=== PATIENT | female | born 1955 | race Caucasian/White ===

== ENCOUNTER 2022-06-19 13:10 | Emergency (ER) | payer MEDICARE ==
[2022-06-19 13:46] LABS: #Eosinphils 0.3 10x3/uL (0.0-0.5); #Monocytes 0.6 10x3/uL (0.0-1.1); #Neutrophils 5.6 10x3/uL (1.5-8.4); %Basophils 0.3 % (0.0-2.0); %Eosinophils 4.4 % (0.0-6.0); %Lymphocytes 8.6 % (18.0-47.0); %Monocytes 8.9 % (0.0-10.0); %Neutrophils 77.2 % (40.0-75.0); Hemoglobin 10.8 g/dL (12.0-15.5); Mean Corpuscular HGB CONC 31.1 g/dL (32.0-36.0); Mean Corpuscular Hemoglobin 28.1 pg (27.0-33.0); Mean Corpuscular Volume 90.1 fl (81.6-98.3); Mean Platelet Volume 11.1 fl (7.4-10.4); Platelet Count 205 10x3/uL (150-450); RBC Distribution Width 17.5 % (11.5-14.5); Red Blood Cell (RBC) Count 3.85 10x6/uL (3.90-5.03); White Blood Cell (WBC) Count 7.2 10x3/uL (3.5-10.5)
[2022-06-19 13:57] LABS: ALT (SGPT) 29 U/L (8-55); AST (SGOT) 23 U/L (5-34); Albumin 3.8 g/dL (3.4-4.8); Alkaline Phosphatase 114 U/L (40-110); Anion Gap 16 mmol/L (10-20); BUN (Urea Nitrogen) 35 mg/dL (9.8-20.1); Bilirubin, Total 0.7 mg/dL (0.2-1.2); Calc. Creatinine Clearance 0 mL/min (70-130); Calcium 8.5 mg/dL (7.8-10.44); Carbon Dioxide 27 mmol/L (23-31); Chloride 100 mmol/L (98-107); Estimated GFR 26; Globulin 2.5 g/dL (2.4-3.5); Glucose 84 mg/dL (80-115); Lipase 80 U/L (8-78); Potassium 4.4 mmol/L (3.5-5.1); Protein, Total 6.3 g/dL (5.8-8.1); Sodium 139 mmol/L (136-145)
[2022-06-19 14:16] LABS: CKMB 3.5 ng/mL (0-6.6)
[2022-06-19 14:17] LABS: Actual Bicarbonate (HCO3v) 29 mEq/L (22-28); Base Excess 3.3 mEq/L (-2.0 to +3.0); Calcium, Ionized (venous) 0.97 mmol/L (1.16-1.32); Chloride (VBG) 101 mmol/L (98-106); Hemoglobin (Hb) 10.3 g/dL (11.7-16.1); Potassium (VBG) 4.78 mmol/L (3.70-5.30); Puncture Site Other Site; RapidComm Collect By ER NURSE; Sodium 134.4 mmol/L (133-146); pH (venous) 7.38 (7.32-7.43)
[2022-06-19] MEDS ORDERED: Aspirin Chewable 81 MG TAB ONE (14:19)
[2022-06-19 15:21] LABS: SARS-CoV-2 NAA Rapid Test Not Detected (NotDetected)
== END 2022-06-19 16:43 | disposition short-term general hospital (02) ==
LOC: CSHERS 13:10
DX: I95.9 Hypotension, unspecified (principal); R77.8 Other specified abnormalities of plasma proteins; K21.9 Gastro-esophageal reflux disease without esophagitis; I10 Essential (primary) hypertension; F17.210 Nicotine dependence, cigarettes, uncomplicated; Z20.822 Contact with and (suspected) exposure to COVID-19; Z79.899 Other long term (current) drug therapy
CPT/HCPCS: 0240U; 71045; 80053; 82553; 82805; 83605; 83690; 83880; 84484; 85025; 93005; 82274